=== PATIENT | male | born 1940 | race Caucasian/White ===

== ENCOUNTER 2019-01-20 14:30 | Observation (INO) ==
[2019-01-20] MEDS ORDERED: SODIUM CHLORIDE 0.9% 1,000 ML IV STA (15:02)
[2019-01-20 15:27] LABS: Basophils % 0.5 % (0.0-0.8); Eosinophils # 0.3 10*3/uL (0.0-0.87); Eosinophils % 4.2 % (0.00-10.9); Hematocrit 36.6 VOL% (42.0-52.0); Hemoglobin 11.9 GM/DL (14.0-18.0); Immature Granulocytes % 0.4 %; Immature Granulocytes Absolute 0.03 #; Lymphocytes # 1.7 10*3/uL (1.4-4.0); Lymphocytes % 21.8 % (21.2-54.2); Mean Corpuscular HGB Conc 32.5 GM/DL (32-36); Mean Corpuscular Volume 89.9 FL (87-102); Mean Platelet Volume 10.4 FL (9.6-12.0); Monocytes % 12.4 % (1.7-12.7); Neutrophils % 60.7 % (38.7-73.9); Platelet Count 178 T/CUMM (130-400); Red Blood Count 4.07 MC/CUMM (3.8-5.5); Red Cell Distribution Width 13.5 % (9.3-17.3); White Blood Count 7.6 T/CUMM (4-12)
[2019-01-20 15:46] LABS: Albumin 3.7 G/DL (3.4-5.0); Bilirubin,Total 0.4 MG/DL (0.2-1.0); Calcium 9.6 MG/DL (8.5-10.1); Total Protein 7.3 G/DL (6.4-8.3)
[2019-01-20 15:51] LABS: Apearance,Urine CLEAR (Clear); Bilirubin,Urine Negative (Negative); Blood, Urine Small mg/dL (Negative); Glucose,Urine (UA) Negative (Negative); Ketones,Urine 5 mg/dL (Negative); Mucus,Urine Occasional /LPF (Occasional); Nitrite,Urine Negative (Negative); Protein,Urine Negative; RBC,Urine <1 /HPF (0-4); Urine Color Yellow (Yellow); Urine Specific Gravity 1.018 (1.001-1.035); Urine Urobilinogen < 2.0 EU/DL (0.2-1.0); WBC,Urine 4 /HPF (0-6)
[2019-01-20] MEDS ORDERED: ONDANSETRON 4 MG/2 ML VIAL IV PRN (16:11)
[2019-01-20] MEDS ORDERED: ACETAMINOPHEN 325 MG TABLET PO PRN (16:11)
[2019-01-20] MEDS: SODIUM CHLORIDE 0.9% 1,000 ML IV SCH (19:01)
[2019-01-20] MEDS: clonazePAM 0.5 MG TABLET PO SCH (20:38)
[2019-01-20] MEDS: DOCUSATE SODIUM 100 MG CAPSULE PO SCH (20:41)
[2019-01-20] MEDS ORDERED: POTASSIUM CHLORIDE RIDER 10 MEQ in PREMIX 1 EACH IV PRN (21:05)
[2019-01-21] MEDS: SODIUM CHLORIDE 0.9% 1,000 ML IV SCH ×3 (02:36→19:03)
[2019-01-21] MEDS: SERTRALINE 100 MG TABLET PO SCH (08:49)
[2019-01-21] MEDS: CALCIUM (CARBONATE)/VITAMIN D 500 MG-200 UNIT TABLET PO SCH (08:49)
[2019-01-21] MEDS: ASPIRIN EC 81 MG TABLET PO SCH (08:49)
[2019-01-21] MEDS: MEGESTROL 40 MG TABLET PO SCH (08:49)
[2019-01-21] MEDS: DOCUSATE SODIUM 100 MG CAPSULE PO SCH (08:49)
[2019-01-21] MEDS: CHOLECALCIFEROL 5,000 UNIT TABLET PO SCH (08:52)
[2019-01-21] MEDS: PANTOPRAZOLE 40 MG TABLET PO SCH (08:52)
[2019-01-21] MEDS: amLODIPine 2.5 MG TABLET PO SCH (08:52)
[2019-01-21 16:34] LABS: Folate 11.3 NG/ML (5.4-24.0)
[2019-01-21] MEDS ORDERED: QUEtiapine 25 MG TABLET PO SCH (18:00)
[2019-01-21] MEDS: MEMANTINE 5 MG TABLET PO SCH (20:43)
[2019-01-21] MEDS: clonazePAM 0.5 MG TABLET PO SCH (20:43)
[2019-01-21] MEDS ORDERED: TAMSULOSIN 0.4 MG CAPSULE PO SCH (21:00)
[2019-01-22] MEDS: DOCUSATE SODIUM 100 MG CAPSULE PO SCH ×2 (02:48→09:16)
[2019-01-22] MEDS: SODIUM CHLORIDE 0.9% 1,000 ML IV SCH (02:52)
[2019-01-22] MEDS: ASPIRIN EC 81 MG TABLET PO SCH (09:11)
[2019-01-22] MEDS: amLODIPine 2.5 MG TABLET PO SCH (09:11)
[2019-01-22] MEDS: CALCIUM (CARBONATE)/VITAMIN D 500 MG-200 UNIT TABLET PO SCH (09:12)
[2019-01-22] MEDS: MEGESTROL 40 MG TABLET PO SCH (09:12)
[2019-01-22] MEDS: CHOLECALCIFEROL 5,000 UNIT TABLET PO SCH (09:12)
[2019-01-22] MEDS: PANTOPRAZOLE 40 MG TABLET PO SCH (09:12)
[2019-01-22] MEDS: SERTRALINE 100 MG TABLET PO SCH (09:12)
[2019-01-22] MEDS: MEMANTINE 5 MG TABLET PO SCH (09:12)
[2019-01-22 11:23] VITALS: BP 147/80
== END 2019-01-22 12:50 | disposition swing bed (61) ==
LOC: EDUNIT# → EDBD → N.EDINP 14:30 → N.ED 14:30 → N.2E 17:12
PROVIDERS: ADMIT Family Medicine; ATTEND Family Medicine